=== PATIENT | male | born 1980 | race Hispanic/Latino ===

== ENCOUNTER 2023-06-13 02:41 | Emergency (ER) | payer OTHER ==
[~2023-06-13] VITALS: Ht 167.6 cm; Wt 100.2 kg
[2023-06-13] MEDS ORDERED: LIDOCAINE HCL 1% 20 ML VIAL ONE (03:15)
[2023-06-13 04:00] LABS: BASOPHILS % (AUTO) 0.5 % (0.0-5.0); MEAN CORPUSCULAR HEMOGLOBIN 31.4 pg (27.0-33.0); MEAN CORPUSCULAR VOLUME 92.3 fL (79-99); MONOCYTES % (AUTO) 8.7 % (3.0-13.0); PLATELET COUNT (AUTO) 207 K/uL (130-400); RED BLOOD CELL COUNT(AUTO) 3.25 MIL/uL (4.50-6.20); RED CELL DISTRIBUTION WIDTH 13.6 % (11.0-15.5); WHITE BLOOD COUNT (AUTO) 7.5 K/uL (4.8-10.8)
[2023-06-13 04:13] LABS: CREATININE 1.3 mg/dL (0.5-1.5); POTASSIUM 3.3 mmol/L (3.5-5.1)
[2023-06-13 04:18] LABS: ALBUMIN 3.5 g/dL (3.5-5.0)
[2023-06-13] MEDS ORDERED: CEFAZOLIN SODIUM 1 GM VIAL IVPB STA (04:55)
[2023-06-13] MEDS ORDERED: AMOX1TAB16 PO (04:59)
[2023-06-13] MEDS ORDERED: IBUP-1493 PO (04:59)
[2023-06-13] MEDS ORDERED: DIPH,PERTUSS(ACELL),TET VAC/PF 0.5 ML VIAL IM ONE (05:00)
[2023-06-13] MEDS ORDERED: TETANUS/DIPHTHERIA TOXOID [ADULT] 0.5 ML VIAL IM ONE ×2 (05:15→05:30)
[2023-06-13 06:44] VITALS: BP 111/63; PULSE 96; RESP 18; O2SAT 100
== END 2023-06-13 06:53 | disposition home or self-care (01) ==
LOC: EDH 02:41
DX: S31.814A Puncture wound with foreign body of right buttock, initial encounter (principal); E11.9 Type 2 diabetes mellitus without complications; E78.00 Pure hypercholesterolemia, unspecified; I10 Essential (primary) hypertension; Z95.5 Presence of coronary angioplasty implant and graft; W18.2XXA Fall in (into) shower or empty bathtub, initial encounter; Y93.89 Activity, other specified; Y92.89 Other specified places as the place of occurrence of the external cause; Y99.8 Other external cause status
CPT/HCPCS: 99285; 12032; 74176; 96365; 80053; 85025; 36415; 90714; 72170; 90471; J0690